=== PATIENT | female | born 1965 | race Caucasian/White ===

== ENCOUNTER 2016-05-13 17:25 | Emergency (ER) | payer OTHER ==
[2016-05-13 17:33] VITALS: O2SAT 96
[2016-05-13] MEDS ORDERED: TORAdol 30 mg Injection IM ONE (17:48)
[2016-05-13] MEDS ORDERED: Norflex 60 MG/2 ML IM ONE (17:48)
[2016-05-13] MEDS ORDERED: TORAdol 30 mg Injection ONE (17:51)
[2016-05-13] MEDS ORDERED: Norflex 60 MG/2 ML ONE (17:51)
[2016-05-13 18:26] LABS: Collection Type CCMS
[2016-05-13 18:27] LABS: Bacteria RARE /HPF (NEGATIVE); COMPLETE URINE MICROSCOPIC? YES; Epithelial Cells FEW /HPF (FEW); WBC 0-2 /HPF (0-5)
--- NOTE | 2016-05-13 18:34 | ERPHSYRPT ---
- History of Present Illness Time Seen by Provider: 05/13/16 17:30 Source: patient Exam Limitations: clinical condition Patient Subjective Stated Complaint: lower back pain Triage Nursing Assessment: has had chronic back pain for years and pain has increased for past 2 days. states has been bed for past 3 days. no recent injury. legs in constant movement. skin warm and dry. Physician History: PATIENT WITH HISTORY OF CHRONIC LOW BACK PAIN, DEGENERATIVE DISC DISEASE FOR YEARS, COMPLAINS OF INCREASING LOW BACK PAIN FOR 3-4 DAYS. DENIES TRAUMA OR INJURY, WEAKNESS IN LOWER EXTREMITIES, LOSS OF BOWEL OR BLADDER FUNCTION. DENIES URINARY SYMPTOMS, FREQUENCY, URGENCY, OR DYSURIA. Timing/Duration: day(s) Method of Injury: other (DENIES INJURY) Quality: sharp Back Pain Location: lumbar spine Back Pain Radiation: buttocks Severity of Pain-Max: moderate Severity of Pain-Current: moderate Modifying Factors: Improves With: movement Associated Symptoms: muscle spasms Previous symptoms: same symptoms as today Allergies/Adverse Reactions: Beta-Blockers (Beta-Adrenergic Bloc Allergy (Verified 05/13/16 17:38) cephalexin [From Keflex] Allergy (Verified 05/13/16 17:38) duloxetine [From Cymbalta] Allergy (Verified 05/13/16 17:38) morphine Allergy (Verified 05/13/16 17:38) pregabalin [From Lyrica] Allergy (Verified 05/13/16 17:38) promethazine [From Phenergan] Allergy (Verified 05/13/16 17:38) Sulfa (Sulfonamide Antibiotics) Allergy (Verified 05/13/16 17:38) tramadol [From Ultram] Allergy (Verified 05/13/16 17:38) venlafaxine [From Effexor] Allergy (Verified 05/13/16 17:38) Hx Tetanus, Diphtheria Vaccination/Date Given: Yes Hx Influenza Vaccination/Date Given: Yes (2015) Hx Pneumococcal Vaccination/Date Given: No Immunizations Up to Date: Yes - Review of Systems Constitutional: No Fever, No Chills Eyes: No Symptoms Ears, Nose, & Throat: No Symptoms Respiratory: No Cough, No Dyspnea Cardiac: No Symptoms, No Chest Pain, No Edema, No Syncope Abdominal/Gastrointestinal: No Symptoms, No Abdominal Pain, No Nausea, No Vomiting, No Diarrhea Genitourinary Symptoms: No Dysuria Musculoskeletal: No Back Pain, No Neck Pain Skin: No Rash Neurological: No Dizziness, No Focal Weakness, No Sensory Changes Psychological: No Symptoms Endocrine: No Symptoms All Other Systems: Reviewed and Negative - Past Medical History Pertinent Past Medical History: Yes Respiratory History: Asthma, COPD Endocrine Medical History: Diabetes Type II Musculoskeletal History: Arthritis, Fibromyalgia GI Medical History: Colitis, Irritable Bowel Psycho-Social History: Anxiety, Depression Other Medical History: chronic back pain. PTSD - Past Surgical History Past Surgical History: Yes Gastrointestinal: Cholecystectomy Female Surgical History: Tubal Ligation Other Surgical History: fibroids - Social History Smoking Status: Never smoker Exposure to second hand smoke: Yes Drug Use: none Patient Lives Alone: No - Female History Hx Last Menstrual Period: 6 weeks - Nursing Vital Signs Temperature: 98.8 F Temperature Source: Oral Pulse Rate: 90 Respiratory Rate: 18 Pain Intensity: 10 - Physical Exam General Appearance: mild distress Eye Exam: PERRL/EOMI, eyes nml inspection Neck Exam: normal inspection, non-tender, supple, full range of motion, No meningismus, No midline tenderness Respiratory Exam: normal breath sounds, lungs clear, No respiratory distress Cardiovascular Exam: regular rate/rhythm, normal heart sounds Gastrointestinal Exam: soft, normal bowel sounds, No tenderness, No mass Back Exam: normal inspection, decreased range of motion, point tenderness ( LUMBAR SPINAL WITH PARASPINAL TENDERNESS) Extremity Exam: normal inspection, normal range of motion, No calf tenderness, No pedal edema Peripheral Pulses: carotid (R): 2+, carotid (L): 2+, femoral (R): 2+, femoral (L ): 2+, dorsalis-pedis (R): 2+, dorsalis-pedis (L): 2+ Neurologic Exam: alert, oriented x 3, cooperative, 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, normal mood/affect, nml station & gait, sensation nml, No motor deficits Skin Exam: normal color, warm, dry, No rash SpO2: 96 Oxygen Delivery: Room Air Ordered Tests: Active Orders 24 hr Category Date Time Status UA W/ MICROSCOPIC Stat Lab 05/13/16 18:00 Completed Urine Triage Profile Stat Lab 05/13/16 18:00 Completed Medication Summary Discontinued Medications Generic Name Dose Route Start Last Admin Trade Name Freq PRN Reason Stop Dose Admin Ketorolac Tromethamine 60 mg 05/13/16 17:48 05/13/16 17:52 Toradol 30 Mg Injection IM 05/13/16 17:49 60 mg STAT ONE Administration Ketorolac Tromethamine Confirm 05/13/16 17:51 Toradol 30 Mg Injection Administered 05/13/16 17:52 Dose 60 mg .ROUTE .STK-MED ONE Orphenadrine Citrate 60 mg 05/13/16 17:48 05/13/16 17:52 Norflex 60 Mg/2 Ml IM 05/13/16 17:49 60 mg STAT ONE Administration Orphenadrine Citrate Confirm 05/13/16 17:51 Norflex 60 Mg/2 Ml Administered 05/13/16 17:52 Dose 60 mg .ROUTE .STK-MED ONE Lab/Rad Data: Laboratory Results 05/13/16 05/13/16 Range/Units 18:00 18:00 Ur Collection Type CCMS Urine Color YELLOW (YELLOW) Urine Appearance CLEAR (CLEAR) Urine pH 7.0 (5-6) Ur Specific [place] 1.015 (1.005-1.025) Urine Protein NEGATIVE (Negative) Urine Glucose (UA) NEGATIVE (NEGATIVE) mg/dL Urine Ketones NEGATIVE (NEGATIVE) Urine Nitrite NEGATIVE (NEGATIVE) Urine Bilirubin NEGATIVE (NEGATIVE) Urine Urobilinogen 0.2 (0-1) mg/dL Urine WBC (Auto) NEGATIVE (NEGATIVE) Urine RBC (Auto) TRACE-INTACT (0-5) Yobany/ul Urine Microscopic RBC 0-2 (0-2) /HPF Urine Microscopic WBC 0-2 (0-5) /HPF Ur Epithelial Cells FEW (FEW) /HPF Urine Bacteria RARE (NEGATIVE) /HPF Urine Opiates Level NEG. (NEGATIVE) Ur Methadone NEG. (NEGATIVE) Urine Barbiturates NEG. (NEGATIVE) Ur Phencyclidine (PCP) NEG. (NEGATIVE) Urine Amphetamine NEG. (NEGATIVE) U Benzodiazepine Level NEG. (NEGATIVE) Urine Cocaine NEG. (NEGATIVE) Urine Marijuana (THC) NEG. (NEGATIVE) Specimen Received 1814 - Progress Progress: pain not gone completely Progress Note: 05/13/16 18:32 PATIENT ADMINISTERED NORFLEX 60MG/TORADOL 60MG IM Counseled pt/family regarding: lab results, diagnosis, need for follow-up - Departure Time of Disposition: 18:45 Departure Disposition: Home Clinical Impression: CHRONIC LOW BACK PAIN Condition: Stable Critical Care Time: No Additional Instructions: TORADOL 10MG EVERY 6 HOURS FOR PAIN NEEDED. NORFLEX 100MG TWICE DAILY FOR MUSCLE SPASMS. CONSULT YOUR FAMILY PHYSICIAN FOR PAIN MANAGEMENT AND PHYSICIAN THERAPY. Prescriptions: Ketorolac Tromethamine [Toradol] 10 mg PO Q6H PRN PRN #20 tablet PRN Reason: Pain Orphenadrine Citrate 100 mg [Norflex 100 MG Tablet] 100 mg PO BIDPRN PRN # 10 tab PRN Reason: Muscle Spasms
[2016-05-13 18:50] VITALS: BP 127/91; PULSE 80
== END 2016-05-13 18:55 | disposition home or self-care (01) ==
LOC: ED 17:25
DX: M54.5 Low back pain (principal); Z87.898 Personal history of other specified conditions; Z79.899 Other long term (current) drug therapy
CPT/HCPCS: 80307; 81000; 96372; 99284; J1885; J2360